=== PATIENT | female | born 1975 | race Asian ===

== ENCOUNTER 2017-01-15 20:50 | Emergency (ER) | payer OTHER ==
[2017-01-15 21:10] VITALS: BP 116/89; PULSE 67; RESP 20; TEMP 97.7; O2SAT 94
[2017-01-15] MEDS ORDERED: MAG HYDROX/AL HYDROX/SIMETH 30 ML UDCUP PO ONE (21:10)
[2017-01-15] MEDS ORDERED: NS 1,000 ML IV ONE (21:11)
[2017-01-15] MEDS ORDERED: ONDANSETRON 4 MG/2 ML VIAL IVP ONE (21:11)
--- NOTE | 2017-01-15 21:31 | UCPHY ---
H & P Patient Type: New Chief Complaint Nursing Narrative: epigastric pain x 3 hours. denies N/V/D/ fevers. Time Seen by Provider: 01/15/17 21:08 HPI/ROS: CHIEF COMPLAINT: Abdominal pain - hx per interprter, language line. HISTORY OF PRESENT ILLNESS: The patient is a 41-year-old female who presents with acute abdominal pain. She ate a banana around 7pm so as to put something in her stomach, as the pain had started at 6 pm, thouigh it was only mild at that time. The pain was mild at onset, but after the banana it was moderate. She took Aluminum sulfate and her pain improved, by the time she got here. She states it is still there, but more of a discomfort than a pain. The patient had similar pain 2 years ago in [place]. She had a negative ultrasound but was found to have an elevated WBC at that time. No recurrence since. No family hx of gall bladder problems.She notes decreased appetite. The patient has been taking Amoxicillin for the past 2 days because of a toothache. She denies nausea, vomiting, or diarrhea. The patient had an abdominal ultrasound and chest CT 4 months ago that were normal, as part of a 2 year breast cancer follow up. No nausea, vomiting, or diarrhea. She denies large amounts of Advil or Ibuprofen. A Bangladeshi swamper was used during the examination. REVIEW OF SYSTEMS: Constitutional: No fever, no chills. Eyes: No discharge. ENT: No sore throat. Cardiovascular: No chest pain, no palpitations. Respiratory: No cough, shortness of breath, or wheezing. Gastrointestinal: See above. Genitourinary: No hematuria or frequency. Musculoskeletal: No back pain. Skin: No rashes. Neurological: No headache. 10 point ROS otherwise negative Source: Patient Exam Limitations: Language barrier - Personal History LMP (Females 10-55): Unknown - Medical/Surgical History Hx Asthma: No Hx Chronic Respiratory Disease: No Hx Diabetes: No Hx Cardiac Disease: No Hx Renal Disease: No Hx Cirrhosis: No Hx Alcoholism: No Hx HIV/AIDS: No Hx Splenectomy or Spleen Trauma: No Other PMH: Breast cancer - Family History Significant Family History: No pertinent family hx - Social History Smoking Status: Never smoked Alcohol Use: None Drug Use: None - Physical Exam Exam: General Appearance: Alert, no distress, but anxious that this is a recurrence of her breast cancer. Afebrile. Normal phonation. No respiratory distress. Eyes: Pupils equal and round no pallor or injection. No icterus ENT, Mouth: Mucous membranes moist. Pharynx without erythema or exudate. TM Clear. Neck: No adenopathy. Supple. No JVD. Trachea in midline. Respiratory: There are no retractions, lungs are clear to auscultation. Cardiovascular: Regular rate and rhythm, no mumur. Abdomen: Soft and nontender, no masses, bowel sounds normal. Neurological: Ox3. No motor weakness. Sensation intact. Gait nl. Skin: Warm and dry, no rashes. Good color. Musculoskeletal: No joint swelling. Extremities: No edema. Homans sign negative. No cords. Psychiatric: Normal affect. Constitutional: Initial Vital Signs Temperature (C) 36.5 C 01/15/17 21:08 Heart Rate 67 01/15/17 21:08 Respiratory Rate 20 01/15/17 21:08 Blood Pressure 116/89 H 01/15/17 21:08 O2 Sat (%) 94 01/15/17 21:08 O2 Delivery Mode Room Air Allergies/Adverse Reactions: No Known Allergies Allergy (Unverified 01/15/17 21:07) Home Medications: Medication Instructions Recorded CALCIUM 01/15/17 Omeprazole [Prilosec 20 mg] 20 mg PO DAILY #14 capsule. 01/15/17 Medical Decision Making ED Course/Re-evaluation: The patient is a 41-year-old female with history of breast cancer who presents with acute abdominal pain. The patient is Bangladeshi speaking, an swamper was used during the examination. The patient states her pain improved while I was speaking with her. Her main concern was that her breast cancer returned. Plan for basic labs. Labs are insignificant. I discussed findings with the patient. She agrees with plan for discharge home. She is feeling much improved. As a possibilities symptoms were reoccurred her I would prescribe her 14 days of Prilosec 20 mg Differential Diagnosis: Differential diagnosis includes, but is not limited to: Gastroenteritis, dehydration, hepatitis, cholecystitis, appendicitis, gastritis , mesenteric adenitis, food poisoning, bacterial dysentery - Data Points Laboratory Results: Laboratory Results 01/15/17 21:50 01/15/17 21:50 01/15/17 01/15/17 21:50 21:50 WBC 10.90 10^3/uL H 10^3/uL (3.80-9.50) RBC 4.22 10^6/uL 10^6/uL (4.18-5.33) Hgb 14.0 g/dL g/dL (12.6-16.3) Hct 38.5 % % (38.0-47.0) MCV 91.2 fL fL (81.5-99.8) MCH 33.2 pg pg (27.9-34.1) MCHC 36.4 g/dL g/dL (32.4-36.7) RDW 11.2 % L % (11.5-15.2) Plt Count 254 10^3/uL 10^3/uL (150-400) MPV 9.3 fL fL (8.7-11.7) Neut % (Auto) 82.4 % H % (39.3-74.2) Lymph % (Auto) 11.5 % L % (15.0-45.0) Davie % (Auto) 4.5 % % (4.5-13.0) Eos % (Auto) 0.7 % % (0.6-7.6) Baso % (Auto) 0.6 % % (0.3-1.7) Nucleat RBC Rel Count 0.0 % % (0.0-0.2) Absolute Neuts (auto) 8.99 10^3/uL H 10^3/uL (1.70-6.50) Absolute Lymphs (auto) 1.25 10^3/uL 10^3/uL (1.00-3.00) Absolute Monos (auto) 0.49 10^3/uL 10^3/uL (0.30-0.80) Absolute Eos (auto) 0.08 10^3/uL 10^3/uL (0.03-0.40) Absolute Basos (auto) 0.06 10^3/uL 10^3/uL (0.02-0.10) Absolute Nucleated RBC 0.00 10^3/uL 10^3/uL (0-0.01) Immature Gran % 0.3 % % (0.0-1.1) Immature Gran # 0.03 10^3/uL 10^3/uL (0.00-0.10) Sodium 144 mEq/L mEq/L (134-144) Potassium 3.4 mEq/L L mEq/L (3.5-5.2) Chloride 103 mEq/L mEq/L (97-110) Carbon Dioxide 25 mEq/l mEq/l (22-31) Anion Gap 16 mEq/L mEq/L (8-16) BUN 15 mg/dL mg/dL (7-23) Creatinine 0.7 mg/dL mg/dL (0.6-1.0) Estimated GFR > 60 Glucose 117 mg/dL H mg/dL (70-100) Calcium 9.6 mg/dL mg/dL (8.5-10.4) Total Bilirubin 0.4 mg/dL mg/dL (0.1-1.4) Conjugated Bilirubin 0.2 mg/dL mg/dL (0.0-0.5) Unconjugated Bilirubin 0.2 mg/dL mg/dL (0.0-1.1) AST 22 IU/L IU/L (14-46) ALT 24 IU/L IU/L (9-52) Alkaline Phosphatase 78 IU/L IU/L (38-126) Total Protein 8.0 g/dL g/dL (6.3-8.2) Albumin 4.3 g/dL g/dL (3.5-5.0) Lipase 101.0 IU/L IU/L (23-300) Medications Given: Discontinued Medications Al Hydroxide/Mg Hydroxide (Maalox Susp) 30 ml PO ONCE ONE Stop: 01/15/17 21:11 Last Admin: 01/15/17 21:41 Dose: Not Given Sodium Chloride (Ns) 1,000 mls @ 0 mls/hr IV ONCE ONE PRN Reason: As Directed Stop: 01/15/17 21:12 Last Admin: 01/15/17 21:42 Dose: Not Given Ondansetron HCl (Zofran) 8 mg IVP ONCE ONE Stop: 01/15/17 21:12 Last Admin: 01/15/17 21:43 Dose: Not Given Departure - Departure Disposition: Home, Routine, Self-Care Clinical Impression: Abdominal pain Qualifiers: Abdominal location: epigastric Qualified Code(s): R10.13 - Epigastric pain Condition: Good Instructions: Dicyclomine (By mouth), Acute Abdominal Pain (ED) Additional Instructions: 1. Take Prilosec as prescribed for abdominal pain. 2. You have been referred to a primary care physician below. Please call to arrange a followup appointment as needed. 3. As he requested, 1 of the physicians that you can refer to, Dr. Giordano, is an oncologist. Referrals: Judson Escalante MD [Medical Doctor] - As per Instructions Mahendra Giordano MD [Medical Doctor] - As per Instructions Prescriptions: Omeprazole [Prilosec 20 mg] 20 mg PO DAILY #14 capsule.dr Darius AQUINO PQRS Measurement: NA Report Scribed for: Maximino Freeman Report Scribed by: Zuly Contreras Date of Report: 01/15/17 Time of Report: 21:36
[2017-01-15 21:58] LABS: % IMMATURE GRANULYOCYTES 0.3 % (0.0-1.1); ABSOLUTE IMMATURE GRANULOCYTES 0.03 10^3/uL (0.00-0.10); ADD DIFF? NO; ADD MORPH? NO; ADD SCAN? NO; ATYPICAL LYMPHOCYTE FLAG 0 (0-99); FRAGMENT RBC FLAG 0 (0-99); HEMATOCRIT 38.5 % (38.0-47.0); LEFT SHIFT FLG 0 (0-99); LIPEMIA HEMOLYSIS FLAG 90 (0-99); MEAN CELL HEMOGLOBIN 33.2 pg (27.9-34.1); MEAN CELL HEMOGLOBIN CONCENTR. 36.4 g/dL (32.4-36.7); MEAN CELL VOLUME 91.2 fL (81.5-99.8); MEAN PLATELET VOLUME 9.3 fL (8.7-11.7); PLATELET CLUMPS FLAG 0 (0-99); PLATELET COUNT 254 10^3/uL (150-400); RED BLOOD CELL COUNT 4.22 10^6/uL (4.18-5.33); RED CELL DISTRIBUTION WIDTH 11.2 % (11.5-15.2)
[2017-01-15 22:14] LABS: ALANINE AMINOTRANSFERASE 24 IU/L (9-52); ALBUMIN 4.3 g/dL (3.5-5.0); ALKALINE PHOSPHATASE 78 IU/L (38-126); ANION GAP 16 mEq/L (8-16); ASPARTATE AMINOTRANSFERASE 22 IU/L (14-46); BILIRUBIN,TOTAL 0.4 mg/dL (0.1-1.4); BILIRUBIN-CONJUGATED 0.2 mg/dL (0.0-0.5); BILIRUBIN-UNCONJUGATED 0.2 mg/dL (0.0-1.1); CALCIUM 9.6 mg/dL (8.5-10.4); CARBON DIOXIDE 25 mEq/l (22-31); CHLORIDE 103 mEq/L (97-110); CREATININE 0.7 mg/dL (0.6-1.0); GLOMERULAR FILTRATION RATE > 60; GLUCOSE 117 mg/dL (70-100); POTASSIUM 3.4 mEq/L (3.5-5.2); SODIUM 144 mEq/L (134-144)
== END 2017-01-15 23:05 | disposition home or self-care (01) ==
LOC: CED 20:50
DX: R10.13 Epigastric pain (principal); Z85.3 Personal history of malignant neoplasm of breast
CPT/HCPCS: 80048-PO; 80076-PO; 83690-PO; 85025-PO; 99205-PO; G0463-PO; J2405